=== PATIENT | male | born 1985 | race Caucasian/White ===

== ENCOUNTER → 2019-11-16 | Outpatient (CLI) | payer OTHER, SELFPAY ==
[2019-11-16 15:33] VITALS: BMI 19.1
--- NOTE | 2019-11-16 15:48 | RAD_ITS ---
STUDY: X-RAY - LEFT HAND, ATTENTION FIFTH FINGER REASON FOR EXAM: Male, 34 years old. CRUSHED DISTAL LEFT PINKY FINGER TECHNIQUE: 3 view(s) of the finger were obtained. COMPARISON: None. FINDINGS: There is diffuse soft tissue edema of the distal phalanx of the fifth digit. There is a comminuted nondisplaced fracture of the ungual tuft of the distal phalanx of the fifth digit. The bone mineralization is preserved.. RAD/Finger(s) Min 2 Views IMPRESSION: comminuted nondisplaced fracture of the ungual tuft of the distal phalanx of the fifth digit Diffuse soft tissue edema of the fifth digit Electronically Signed: Casey Ruff, at 16:49 EDT Tel , Service support ,
== END | disposition home or self-care (01) ==
LOC: HPRAD 15:48
PROVIDERS: Referring Provider Physician Assistant Surgical; Visit Provider Physician Assistant Surgical
DX: S67.197A Crushing injury of left little finger, initial encounter (principal)
CPT/HCPCS: 73140

== ENCOUNTER → 2019-11-26 | Outpatient (CLI) | payer OTHER, SELFPAY ==
[2019-11-16 15:33] VITALS: BMI 19.1
--- NOTE | 2019-11-26 09:19 | RAD_ITS ---
STUDY: X-RAY - LEFT HAND, ATTENTION FINGER REASON FOR EXAM: Male, 34 years old. FOLLOW UP FOR CRUSHED DISTAL FINGER INJURY WITH FX TECHNIQUE: History view(s) of the finger were obtained. COMPARISON: None. FINDINGS: Normal metacarpal head. Normal metacarpophalangeal joint. Normal proximal phalanx. Normal middle phalanx. There is a healing nondisplaced fracture of the ungual tuft of the distal phalanx of the fifth digit. Normal proximal interphalangeal joint. Normal distal interphalangeal joint. RAD/Finger(s) Min 2 Views IMPRESSION: There is a healing nondisplaced fracture of the ungual tuft of the distal phalanx of the fifth digit. Electronically Signed: Any Merritt, at 12:46 EDT Tel , Service support ,
== END | disposition home or self-care (01) ==
LOC: MTRAD 09:18
PROVIDERS: Referring Provider Orthopaedic Surgery; Visit Provider Orthopaedic Surgery
DX: S67.197A Crushing injury of left little finger, initial encounter (principal)
CPT/HCPCS: 73140

== ENCOUNTER → 2021-08-01 | Outpatient (CLI) | payer MEDICARE, SELFPAY | END | disposition home or self-care (01) | LOC: LABSPEC 13:31 | PROVIDERS: Referring Provider Physician Assistant; Visit Provider Physician Assistant | DX: U07.1 COVID-19 (principal) | CPT/HCPCS: 87635; U0005; U0003 ==